=== PATIENT | male | born 1965 | race African-American/Black ===

== ENCOUNTER → 2016-09-23 | Outpatient (CLI) | payer MEDICAID ==
[2016-09-23 17:31] LABS: BF CLARITY TURBID; BF COLOR RED
== END | disposition home or self-care (01) ==
LOC: SPEC 13:12
PROVIDERS: ATTEND Orthopaedic Surgery
DX: S80.02XA Contusion of left knee, initial encounter (principal); X58.XXXA Exposure to other specified factors, initial encounter; Y93.89 Activity, other specified; Y92.89 Other specified places as the place of occurrence of the external cause; Y99.8 Other external cause status
CPT/HCPCS: 87071; 87075; 87102; 87116; 87205; 89050